=== PATIENT | male | born 1990 | race Caucasian/White ===

== ENCOUNTER 2021-07-05 09:38 | Emergency (ER) | payer OTHER ==
[~2021-07-05 09:38] MED LIST: IBU800 MG PO; IBUPROFEN600 MG PO; MUCINEX D ER 61 EACH PO; NAPROSYN500 MG PO; OMNICEF 300 MG300 MG PO; PERCOCET 5-3251 EACH PO; PREDNISONE 50 M50 MG PO; PREDNISONE20 MG PO; ROBAXIN 750 MG750 MG GT; ROBAXIN-750750 MG PO; SUDAFED 60 MG T60 MG PO
[2021-07-05] MEDS ORDERED: VIBRAMYCIN100 MG PO (10:45)
== END 2021-07-05 11:00 | disposition home or self-care (01) ==
LOC: ER1 09:38
DX: S61.512A Laceration without foreign body of left wrist, initial encounter (principal); X58.XXXA Exposure to other specified factors, initial encounter
CPT/HCPCS: 99283